=== PATIENT | female | born 1970 | race Caucasian/White ===

== ENCOUNTER 2022-10-27 12:51 | Day surgery (SDC) | payer OTHER ==
[2022-10-27] MEDS ORDERED: DEXTROSE 5% IVPB ONE (13:30)
[2022-10-27] MEDS ORDERED: FERRIC CARBOXYMALTOSE 750 MG in SODIUM CHLORIDE 250 ML IVPB ONE (13:30)
[2022-10-27] MEDS ORDERED: FERRIC CARBOXYMALTOSE IVPB ONE (13:30)
[2022-10-27] MEDS ORDERED: WATER IVPB ONE (13:30)
[2022-10-27 14:37] VITALS: BP 126/60; PULSE 78; RESP 18; TEMP 98.7
== END 2022-10-27 14:38 | disposition home or self-care (01) ==
LOC: FINFUSION 12:51 → FM/S 12:58 → FINFUSION 14:38
PROVIDERS: ATTEND Family Medicine
PROC: 3E033GC Introduction of Other Therapeutic Substance into Peripheral Vein, Percutaneous Approach (ICD-10-PCS; principal; 2022-10-27)
DX: D50.9 Iron deficiency anemia, unspecified (principal)
CPT/HCPCS: 96365; J1439

== ENCOUNTER 2022-11-06 11:35 | Day surgery (SDC) | payer OTHER ==
[2022-11-06] MEDS ORDERED: FERRIC CARBOXYMALTOSE 750 MG in SODIUM CHLORIDE 250 ML IVPB SCH (12:00)
[2022-11-06 13:18] VITALS: BP 112/72; PULSE 93; RESP 18; TEMP 98.4
== END 2022-11-06 13:25 | disposition home or self-care (01) ==
LOC: FINFUSION 11:35 → FM/S 11:37 → FINFUSION 13:25
PROVIDERS: ATTEND Family Medicine
PROC: 3E033GC Introduction of Other Therapeutic Substance into Peripheral Vein, Percutaneous Approach (ICD-10-PCS; principal; 2022-11-06)
DX: D50.9 Iron deficiency anemia, unspecified (principal)
CPT/HCPCS: 96365; J1439

== ENCOUNTER 2023-04-19 05:25 | Day surgery (SDC) | payer OTHER ==
[2023-04-15 12:37] VITALS: BMI 26.6
[2023-04-19 09:35] VITALS: RESP 20; TEMP 97.5
[2023-04-19 10:32] VITALS: BP 111/63; PULSE 71
== END 2023-04-19 10:30 | disposition home or self-care (01) ==
LOC: JASU-ENDO 05:25
PROVIDERS: ATTEND Internal Medicine Gastroenterology
PROC: 0DB98ZX Excision of Duodenum, Via Natural or Artificial Opening Endoscopic, Diagnostic (ICD-10-PCS; 2023-04-19)
PROC: 0DB78ZX Excision of Stomach, Pylorus, Via Natural or Artificial Opening Endoscopic, Diagnostic (ICD-10-PCS; 2023-04-19)
PROC: 0DB68ZX Excision of Stomach, Via Natural or Artificial Opening Endoscopic, Diagnostic (ICD-10-PCS; 2023-04-19)
PROC: 0DJD8ZZ Inspection of Lower Intestinal Tract, Via Natural or Artificial Opening Endoscopic (ICD-10-PCS; principal; 2023-04-19 09:00)
DX: Z12.11 Encounter for screening for malignant neoplasm of colon (principal); D50.9 Iron deficiency anemia, unspecified; K64.8 Other hemorrhoids; K57.30 Diverticulosis of large intestine without perforation or abscess without bleeding; Z86.010 Personal history of colon polyps; Z83.719 Family history of colon polyps, unspecified; K29.50 Unspecified chronic gastritis without bleeding; K44.9 Diaphragmatic hernia without obstruction or gangrene; K31.7 Polyp of stomach and duodenum
CPT/HCPCS: 81025